=== PATIENT | female | born 1960 | race Two or more races ===

== ENCOUNTER 2024-04-06 16:10 | Emergency (ER) | payer OTHER ==
[~2024-04-06] VITALS: Ht 167.6 cm; Wt 65.0 kg
[2024-04-06 16:37] LABS: Basophils # (auto) 0 10 ^3/uL (0-0.2); Basophils % (auto) 0.4 % (0.0-2.0); Eosinophils # (auto) 0.1 10 ^3/uL (0-0.8); Eosinophils % (auto) 0.9 % (0.0-7.0); Hematocrit 32.7 % (36.0-46.0); Hemoglobin 11.2 g/dL (12.2-16.2); Lymphocytes # (auto) 1.7 10 ^3/uL (0.4-5.4); Lymphocytes % (auto) 19.2 % (10.0-50.0); Mean Corpuscular Hemoglobin 28.2 pg (28.0-32.0); Mean Corpuscular Hgb Conc. 34.3 g/dL (32.0-36.0); Mean Corpuscular Volume 82.2 fL (80.0-100.0); Monocytes # (auto) 0.6 10 ^3/uL (0-1.3); Monocytes % (auto) 6.8 % (0.0-12.0); Neutrophils # (auto) 6.3 10 ^3/uL (1.6-8.6); Neutrophils % (auto) 72.7 % (37.0-80.0); Nucleated Red Blood Cells % 0.1 %; Platelet Count (auto) 183 10^3/uL (140-450); Red Blood Cells 3.98 10^6/uL (4.0-5.20); Red Cell Distribution Width 13.6 % (11.8-14.3); White Blood Cell 8.6 10^3/uL (4.4-10.8)
--- NOTE | 2024-04-06 16:43 | ED.PDOC ---
Musculoskeletal HPI Comments HPI: Poor Historian. 63-year-old female presents to emergency department for evaluation of left knee pain status post mechanical fall at home from a standing position. Patient was walking back into her house and her great Ronaldo dog ran into her. She fell and landed on her left side and denies any head or neck injury or any use of blood thinners. Patient complains of left knee pain. Patient is brought in by ambulance but there was no apparent deformity. Patient has focal area of pain on the left knee. Denies any other acute symptoms. Past Medcial History: Hyperlipidemia, diabetes, hypertension, Past Surgical History: , appendectomy, cholecystectomy. REVIEW OF SYSTEMS: CONSTITUTIONAL: Denies acute: fever, diaphoresis, chills, generalized weakness. HEAD: Denies acute: headache, photophobia Eyes: Denies acute: Double vision, vision loss, eye pain, eye discharge. EARS: Denies acute: tinnitus, hearing loss, ear discharge, ear pain, THROAT: Denies acute: sore throat, swelling, difficulty swallowing , pain with swallowing, change in voice. NECK: Denies acute: neck pain, neck swelling, stiff neck. HEART: Denies acute : chest pain, palpitations, LUNGS: Denies acute: SOB, wheezing, cough, hemoptysis ABDOMEN: Denies acute: abdominal pain, Nausea, Vomiting, diarrhea, melena , hematemesis, hematochezia SKIN: Denies acute: rash, redness, lesions, itchiness. EXTREMITIES: Denies acute: calf pain, numbness, tingling, weakness, Denies acute: Low back pain. Neuro: Denies acute: focal neurological deficit, motor or sensory focal neurological deficit, tremors, seizure like activity, confusion, dizziness, change in mental status, loss of bowel or bladder function, cauda equina like symptoms. : Denies acute: dysuria, hematuria, flank pain, increase in urinary frequency. PSYCH: Denies acute: hallucination, suicidal ideation, homicidal ideation. FEMALE: Denies acute: abnormal vaginal bleeding, foul odor, unusual discharge. PHYSICAL EXAM: General: no acute distress, awake and alert. Head: normocephalic, atraumatic. Neck: supple, trachea is midline, no swelling. Throat: Normal phonation. Eyes:, no erythema, no purulent discharge, no proptosis, no icterus. Heart: regular rate, regular rhythm, no significant murmur appreciated. Lungs: no apparent respiratory distress, Able to speak in full sentences. No wheezing, no rhonchi, no crackles. No stridors Clear to auscultation bilaterally. Abdomen: non tender to palpation, non distended, soft, no guarding, no rebound, + bowel sounds. Neuro: Awake, Alert, oriented to name, self, situation, follows commands GCS=15. Speech is normal. Skin: no petechia, no purpura, no cyanosis, non-pale, not jaundice. Lower extremities: --1/4 bilateral - Pitting edema no deformity, no focal swelling, no calf TTP. Makes eye contact. moves all four extremities. However she has decreased or slow range of motion of the left knee secondary to left knee pain. Patient is neurovascularly intact in the affected extremity. Pedal pulses palpable. Able to wiggle her toes. Sensation motor are present. Face: no apparent facial droop. Chief Complaint: Lower Extremity Time Seen by MD: 16:10 Primary Care Provider: unknown Reviewed Notes: Nurses Notes, Medications, Allergies Allergies: Coded Allergies: NO KNOWN ALLERGIES (Unverified , 04/06/24) Information Source: Patient Mode of Arrival: EMS Location: Left Was a procedure done? Was a procedure done?: No Differential Diagnosis EXT Differential Diagnosis: Deep Vein Thrombosis, Compartment Syndrome, Fracture, Sprain, Dislocation, DJD, Contusion, Strain, Neurovascular injury, Bursitis X-Ray, Labs, Meds, VS Vital Signs Date Time Temp Pulse Resp B/P (MAP) Pulse Ox O2 Delivery O2 Flow Rate FiO2 04/07/24 00:00 81 04/07/24 00:00 81 17 113/55 (74) 95 04/06/24 23:00 83 12 128/63 (84) 97 04/06/24 22:00 84 15 122/63 (82) 96 04/06/24 21:00 92 18 135/58 (83) 96 04/06/24 20:00 96 14 137/66 (89) 96 04/06/24 20:00 95 04/06/24 19:30 98.5 95 15 137/64 (88) 95 98.5 04/06/24 19:30 95 15 97 Room Air* 0 21 04/06/24 16:17 100.0 94 16 166/82 (110) 98 Lab Test 04/06/24 20:30 04/06/24 16:25 Range/Units Influenza Type A Antigen Negative Negative Influenza Type B Antigen Negative Negative SARS-CoV-2 Antigen (Rapid) Negative NEGATIVE White Blood Count 8.6 4.4-10.8 10^3/uL Red Blood Count 3.98 L 4.0-5.20 10^6/uL Hemoglobin 11.2 L 12.2-16.2 g/dL Hematocrit 32.7 L 36.0-46.0 % Mean Corpuscular Volume 82.2 80.0-100.0 fL Mean Corpuscular Hemoglobin 28.2 28.0-32.0 pg Mean Corpuscular Hemoglobin Concent 34.3 32.0-36.0 g/dL Red Cell Distribution Width 13.6 11.8-14.3 % Platelet Count 183 140-450 10^3/uL Mean Platelet Volume 9.3 6.9-10.8 fL Neutrophils (%) (Auto) 72.7 37.0-80.0 % Lymphocytes (%) (Auto) 19.2 10.0-50.0 % Monocytes (%) (Auto) 6.8 0.0-12.0 % Eosinophils (%) (Auto) 0.9 0.0-7.0 % Basophils (%) (Auto) 0.4 0.0-2.0 % Neutrophils # (Auto) 6.3 1.6-8.6 10 ^3/uL Lymphocytes # (Auto) 1.7 0.4-5.4 10 ^3/uL Monocytes # (Auto) 0.6 0-1.3 10 ^3/uL Eosinophils # (Auto) 0.1 0-0.8 10 ^3/uL Basophils # (Auto) 0 0-0.2 10 ^3/uL Nucleated Red Blood Cells 0.1 % Sodium Level 137 136-145 mmol/L Potassium Level 3.6 3.5-5.1 mmol/L Chloride Level 102 98-107 mmol/L Carbon Dioxide Level 25 20-31 mmol/L Anion Gap 10 5-15 Blood Urea Nitrogen 14 9-23 mg/dL Creatinine 0.50 L 0.550-1.02 mg/dL Glomerular Filtration Rate Calc 105 >90 mL/min BUN/Creatinine Ratio 28.0 H 10.0-20.0 Serum Glucose 234 H 74-106 mg/dL Calcium Level 9.4 8.7-10.4 mg/dL Troponin I High Sensitivity < 3 L </=34 ng/L B-Type Natriuretic Peptide 36.51 0-100 pg/mL Current Medications Medications (Trade) Dose Ordered Sig/Mae Route Start Time Stop Time Status Last Admin Acetaminophen/ Hydrocodone Bitart (Strunk 5/325MG Tab) 1 tab ONCE ONCE PO 04/06/24 18:45 04/06/24 18:46 DC 04/06/24 19:[address] [address] Ph: [phone] DIAGNOSTIC IMAGING Diagnostic Imaging Report : [id number] Signed PATIENT: CAROLINA FRANCO ACCT: [id number] UNIT: [id number] : 1960 LOC: ER ROOM / BED: / AGE / SEX: 63 / F ADM STATUS: REG ER SERVICE [id number] ORDERING PHYSICIAN: GINA MARSHALL DO PROCEDURE(s): ABPL - CT AB PEL WO CON-NO ORAL OR IV REASON: L hip pain ORDER NUMBER(s): [id number], ACCESSION NUMBER(s): [id number] CLINICAL HISTORY: L hip pain TECHNIQUE: CT of the abdomen and pelvis was performed without intravenous contrast. This exam was performed according to our departmental dose optimization program. Up-to-date CT equipment and radiation dose reduction techniques are utilized as appropriate. CTDI: [CTDIvol] DLP: 810.39 WID: COMPARISON: None FINDINGS: Lower Thorax: Mild mitral annular calcifications. Lung bases are clear. Small hiatal hernia. Normal-sized heart. Liver and Biliary system: Prior cholecystectomy, otherwise unremarkable Spleen: Unremarkable. Adrenal Glands and Kidneys: Normal adrenal glands. Very mild bilateral pelvicaliectasis. There is right lower pole renal scarring and cortical calcification. No obstructing renal calculi Pancreas and Retroperitoneum: Unremarkable. Aorta and Major Vessels: Aortoiliac vessels are normal in caliber containing mild calcified atherosclerotic plaque. Bowel, Mesentery and Peritoneal space: Normal caliber small and large bowel. There is mild colonic diverticulosis. Prior appendectomy. There is no free air or fluid collection Pelvis: Urinary bladder is moderately distended. The uterus and ovaries are grossly unremarkable. There is no pelvic lymphadenopathy. Abdominal wall and Osseous Structures: There is a lipoma within the left gluteus medius muscle. No destructive osseous lesion. There are tiny sclerotic foci within the proximal femurs and the pelvis likely bone islands. There is multilevel lower thoracic and lumbar spondylosis. There is a displaced and comminuted left subcapital femoral neck fracture with coxa vera angulation of the proximal left femur , posterior rotation of the left femoral head and slight impaction of the level of the fracture. IMPRESSION: 1. Displaced and comminuted subcapital left femoral neck fracture with coxa vera angulation of the proximal left femur and posterior rotation of the left femoral head in the left hip joint. 2. Mild colonic diverticulosis. 3. Mild bilateral pelvicaliectasis which may be due to reflux in the setting of a moderately distended urinary bladder ATED BY: TOR WONG MD DICTATED DATE/TIME: 04/06/242010 SIGNED BY: TOR WONG MD SIGNED DATE/TIME: 04/06/242010 CC: [place] [id number] Ph: [phone] DIAGNOSTIC IMAGING Diagnostic Imaging Report : [id number] Signed PATIENT: CAROLINA FRANCO ACCT: [id number] UNIT: [id number] : 1960 LOC: ER ROOM / BED: / AGE / SEX: 63 / F ADM STATUS: REG ER SERVICE 47 ORDERING PHYSICIAN: GINA MARSHALL DO PROCEDURE(s): LKNE4 - L KNEE 4V XRAY REASON: fall ORDER NUMBER(s): [id number], ACCESSION NUMBER(s): [id number] EXAM: XY L KNEE 4V XRAY CLINICAL HISTORY: fall COMPARISON: None TECHNIQUE: XY L KNEE 4V XRAY Findings/Impression: 3 views of the left knee. There is no evidence of an acute fracture, dislocation, blastic, or lytic lesions. No radiopaque foreign bodies. No joint effusion. Mild soft tissue edema. ATED BY: KENYA AUGUSTE DO DICTATED DATE/TIME: 04/06/241820 SIGNED BY: KENYA AUGUSTE DO SIGNED DATE/TIME: 04/06/241820 CC: [place] [id number] Ph: [phone] DIAGNOSTIC IMAGING Diagnostic Imaging Report : [id number] Signed PATIENT: CAROLINA FRANCO ACCT: [id number] UNIT: [id number] : 1960 LOC: ER ROOM / BED: / AGE / SEX: 63 / F ADM STATUS: REG ER SERVICE 46 ORDERING PHYSICIAN: GINA MARSHALL DO PROCEDURE(s): LHIP - L HIP COMPLETE XRAY REASON: fall ORDER NUMBER(s): [id number], ACCESSION NUMBER(s): [id number] EXAM: XY L HIP COMPLETE XRAY CLINICAL HISTORY: fall COMPARISON: None TECHNIQUE: XY L HIP COMPLETE XRAY Findings/Impression: 2 views of the left hip with frontal view of the pelvis. Moderately displaced subcapital neck fracture of the left femur. There is no evidence of dislocation, blastic, or lytic lesions. No radiopaque foreign bodies. No joint effusion or superficial soft tissue abnormalities. ATED BY: KENYA AUGUSTE DO DICTATED DATE/TIME: 04/06/241824 SIGNED BY: KENYA AUGUSTE DO SIGNED DATE/TIME: 04/06/241824 CC: Time of 1ST Reevaluation: 20:14 (The case was discussed with the [facility] (HPI, physical exam, labs and diagnostic tests that were available at the time of disposition, ED course, treatment plan) on the phone. They agreed to transfer the patient to their facility for further evaluation and treatment of her presentation. Dr. iptts authorization number is [id number]) Reevaluation 1ST: Unchanged Patient Education/Counseling: Diagnosis, Treatment Family Education/Counseling: No Family Present Comments Patient presented with the above HPI.---falls/left hip the pain---workup was initiated. patient was found with the above mentioned diagnosis. Patient was given: Strunk for pain control. Patient ED course and VS have been stabilized. Patient has been reassessed in the ED and remained in a stable condition. Pertinent incidental findings were discussed with the patient and/or family. Patient/family voices understanding and is agreeable with plan. Patient has been observed in the ED adequate length of time to insure improvement/stability. [facility] was contacted who demanded to transfer the patient to their facility. patient was transferred to [facility] per their insurance requirement for orthopedic intervention and treatment. All the reports of any imaging studies that were ordered by myself were reviewed by myself. Departure 1 Departure Time of Disposition: 18:05 Impression: Primary Impression: Fracture of femoral neck, left Additional Impressions: Left knee pain Fall Disposition: 02 SHORT TERM HOSPITAL Admit to: Tele Condition: Guarded Discharged With: Self Critical Care Note Critical Care Time?: Yes (35 min-critical care time only) I personally scribed for GINA MARSHALL DO ([email or web address]) on 04/06/24 at 21:45. Electronically submitted by Bianca Ling ([facility] [place]). GINA MARSHALL DO Apr 06, 2024 16:43
[2024-04-06 16:48] LABS: Chloride 102 mmol/L (98-107); Potassium 3.6 mmol/L (3.5-5.1); Sodium 137 mmol/L (136-145)
[2024-04-06 16:49] LABS: Anion Gap 10 (5-15); Calcium 9.4 mg/dL (8.7-10.4); Carbon Dioxide 25 mmol/L (20-31)
[2024-04-06 16:54] LABS: Blood Urea Nitrogen 14 mg/dL (9-23); Glucose 234 mg/dL (74-106)
--- NOTE | 2024-04-06 18:23 | DVH ---
EXAM: XY L KNEE 4V XRAY CLINICAL HISTORY: fall COMPARISON: None TECHNIQUE: XY L KNEE 4V XRAY Findings/Impression: 3 views of the left knee. There is no evidence of an acute fracture, dislocation, blastic, or lytic lesions. No radiopaque foreign bodies. No joint effusion. Mild soft tissue edema.
--- NOTE | 2024-04-06 18:27 | DVH ---
EXAM: XY L HIP COMPLETE XRAY CLINICAL HISTORY: fall COMPARISON: None TECHNIQUE: XY L HIP COMPLETE XRAY Findings/Impression: 2 views of the left hip with frontal view of the pelvis. Moderately displaced subcapital neck fracture of the left femur. There is no evidence of dislocation, blastic, or lytic lesions. No radiopaque foreign bodies. No joint effusion or superficial soft tissue abnormalities.
[2024-04-06 19:30] VITALS: PULSE 95; RESP 15; O2SAT 97
[2024-04-06] MEDS: HYDROcodone-ACET 5/325MG TAB PO ONE (19:59)
--- NOTE | 2024-04-06 20:13 | DVH ---
CLINICAL HISTORY: L hip pain TECHNIQUE: CT of the abdomen and pelvis was performed without intravenous contrast. This exam was per formed according to our departmental dose optimization program. Up-to-date CT equipment and radiation dose reduction techniques are utilized as appropriate. CTDI: [CTDIvol] DLP: 810.39 WID: COMPARISON: None FINDINGS: Lower Thorax: Mild mitral annular calcifications. Lung bases are clear. Small hiatal hernia. Normal -sized heart. Liver and Biliary system: Prior cholecystectomy, otherwise unremarkable Spleen: Unremarkable. Adrenal Glands and Kidneys: Normal adrenal glands. Very mild bilateral pelvicaliectasis. There is ri ght lower pole renal scarring and cortical calcification. No obstructing renal calculi Pancreas and Retroperitoneum: Unremarkable. Aorta and Major Vessels: Aortoiliac vessels are normal in caliber containing mild calcified atheroscl erotic plaque. Bowel, Mesentery and Peritoneal space: Normal caliber small and large bowel. There is mild colonic di verticulosis. Prior appendectomy. There is no free air or fluid collection Pelvis: Urinary bladder is moderately distended. The uterus and ovaries are grossly unremarkable. The re is no pelvic lymphadenopathy. Abdominal wall and Osseous Structures: There is a lipoma within the left gluteus medius muscle. No de structive osseous lesion. There are tiny sclerotic foci within the proximal femurs and the pelvis li [place] bone islands. There is multilevel lower thoracic and lumbar spondylosis. There is a displaced a nd comminuted left subcapital femoral neck fracture with coxa vera angulation of the proximal left fe mur , posterior rotation of the left femoral head and slight impaction of the level of the fracture. IMPRESSION: 1. Displaced and comminuted subcapital left femoral neck fracture with coxa vera angulation of the pr oximal left femur and posterior rotation of the left femoral head in the left hip joint. 2. Mild colonic diverticulosis. 3. Mild bilateral pelvicaliectasis which may be due to reflux in the setting of a moderately distende d urinary bladder
[2024-04-06 21:49] LABS: Rapid Influenza A Negative (Negative); Rapid Influenza B Negative (Negative)
[2024-04-06 21:51] LABS: COVID19 ANTIGEN SOFIA FIA NEGATIVE (NEGATIVE)
[2024-04-07 08:30] VITALS: BP 147/71; PULSE 94; RESP 22; TEMP 98.7; O2SAT 95
[2024-04-07 08:31] VITALS: PULSE 97
== END 2024-04-07 09:19 | disposition short-term general hospital (02) ==
LOC: ER 16:10 → EDBD 16:10 → ER 18:40
DX: S72.092A Other fracture of head and neck of left femur, initial encounter for closed fracture (principal); M25.562 Pain in left knee; E78.5 Hyperlipidemia, unspecified; E11.9 Type 2 diabetes mellitus without complications; I10 Essential (primary) hypertension; Z98.890 Other specified postprocedural states; Z90.49 Acquired absence of other specified parts of digestive tract; Z90.89 Acquired absence of other organs; Z20.822 Contact with and (suspected) exposure to COVID-19; W18.39XA Other fall on same level, initial encounter; Y93.89 Activity, other specified; Y92.89 Other specified places as the place of occurrence of the external cause; Y99.8 Other external cause status
CPT/HCPCS: 36415; 73502; 73564; 74176; 80048; 83880; 84484; 85025; 87426; 87804